=== PATIENT | female | born 1990 | race Caucasian/White ===

== ENCOUNTER 2022-02-04 11:35 | Emergency (ER) | payer SELFPAY ==
--- OUTSIDE RECORDS SUMMARY | 2022-02-04 11:38 | XMS REPORT | Continuity of Care Document ---
:1990 Author Organization [facility] t Address [address] [place] [address] Care Team Providers Name Role Phone TIFFANIE ALMAZAN Attending Clinician Unavailable Problems This patient has no known problems. Allergies, Adverse Reactions, Alerts This patient has no known allergies or adverse reactions. Medications This patient has no known medications. Procedures This patient has no known procedures. Encounters Start End Encounter Admission Attending Care Care Encounter Source Date/Time Date/Time Type Type Clinicians Facility Department ID 2020-02-02 2020-02-02 Emergency E MIKO ALMAZAN [id number] 08:34:00 11:30:00 TIFFANIE Results This patient has no known results.
--- NOTE | 2022-02-04 14:07 | ER ---
Nurse's Notes [facility] Name: Yulissa Moran Age: 31 yrs Sex: Female : 1990 Arrival Date: 02/04/2022 Time: 11:37 Bed 28 Private MD: Diagnosis: Dysuria Presentation: 02/04 12:27 Chief complaint: Patient states: " a week ago I had intercourse with my partner and I em6 noticed I got a blister and its really painful". Coronavirus screen: Client denies travel out of the [place] in the last 14 days. Ebola Screen: Patient negative for fever greater than or equal to 101.5 degrees Fahrenheit, and additional compatible Ebola Virus Disease symptoms. Initial Sepsis Screen: Does the patient meet any 2 criteria? No. Patient's initial sepsis screen is negative. Does the patient have a suspected source of infection? No. Patient's initial sepsis screen is negative. Risk Assessment: Do you want to hurt yourself or someone else? Patient reports no desire to harm self or others. Onset of symptoms was January 28, 2022. 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 - Social history:: Smoking status: unknown. Screenin:27 Abuse screen: Denies threats or abuse. Nutritional screening: No deficits noted. em6 Tuberculosis screening: No symptoms or risk factors identified. Fall Risk. Assessment: 12:24 General: Appears uncomfortable, Behavior is cooperative, anxious. Pain: Denies pain. em6 Neuro: Level of Consciousness is awake, alert, obeys commands. Neuro: Oriented to person, place, time, situation. Cardiovascular: Patient's skin is warm and dry. Respiratory: Airway is patent Respiratory effort is even, unlabored, Respiratory pattern is regular, symmetrical. GI: No signs and/or symptoms were reported involving the gastrointestinal system. : Reports burning with urination, discharge, white, pain in the blister. EENT: No deficits noted. Derm: No deficits noted. Musculoskeletal: Circulation, motion, and sensation intact. Range of motion: intact in all extremities. 13:30 Reassessment: No changes from previously documented assessment. Patient and/or family em6 updated on plan of care and expected duration. Pain level reassessed. Patient is alert, oriented x 3, equal unlabored respirations, skin warm/dry/pink. Vital Signs: 12:27 BP 135 / 97; Pulse 77; Resp 18; Temp 98; Pulse Ox 100% ; Weight 69.4 kg; Height 5 ft. 3 em6 in. (160.02 cm); 13:15 BP 130 / 78; Pulse 72; Resp 18; Pulse Ox 100% on R/A; em6 14:00 BP 140 / 86; Pulse 80; Resp 18; Pulse Ox 100% on R/A; em6 12:27 Body Mass Index 27.10 (69.40 kg, 160.02 cm) em6 ED Course: 11:37 Patient arrived in ED. rg4 11:38 Christopher Ulrich PA is PHCP. [facility] 11:38 Joey Polo MD is Attending Physician. [facility] 12:12 Radha Levine, RN is Primary Nurse. em6 12:29 Triage completed. em6 12:29 Arm band placed on. em6 12:30 Patient has correct armband on for positive identification. Placed in gown. Bed in low em6 position. Side rails up X2. Pulse ox on. NIBP on. Warm blanket given. 12:44 RPR Sent. em6 12:44 HIV AG/AB, 4th Gen W/ Reflex Sent. em6 12:44 Inserted saline lock: 20 gauge in left antecubital area, using aseptic technique. Blood em6 collected. 13:36 Herpes Simplex Virus Culture Sent. em6 13:36 RPR Sent. em6 13:36 HIV AG/AB, 4th Gen W/ Reflex Sent. em6 13:36 Wet Prep Sent. em6 13:36 GC (GONORR/CHLAMYDIA) Probe Sent. em6 13:36 Assist provider with pelvic exam: Set up pelvic tray. Performed by Christopher LUJAN em6 Specimens sent to lab. Patient tolerated well. 14:06 Michelle Anne MD is Referral Physician. [facility] 14:16 IV discontinued, intact, bleeding controlled, No redness/swelling at site. Pressure em6 dressing applied. Administered Medications: No medications were administered Medication: 14:16 VIS not applicable for this client. em6 Outcome: 14:06 Discharge ordered by . [facility] 14:16 Discharged to home ambulatory. em6 14:16 Condition: stable 14:16 Discharge instructions given to patient, Instructed on discharge instructions, follow up and referral plans. medication usage, Demonstrated understanding of instructions, follow-up care, medications, Prescriptions given X 3. 14:16 Patient left the ED. em6 Signatures: Christopher Ulrich PA PA jmm Garcia, Rubi rg4 Radha Levine, RN RN em6
--- NOTE | 2022-02-04 14:07 | EDPHYS ---
Physician Documentation [facility] Name: Yulissa Moran Age: 31 yrs Sex: Female : 1990 Arrival Date: 02/04/2022 Time: 11:37 Bed 28 Private MD: ED Physician Joey Polo HPI: 02/04 12:08 This 31 yrs old Female presents to ER via Ambulatory with complaints of STD Exposure. jmm 12:08 The patient presents with a possible exposure to a sexually transmitted disease, jmm herpes. Onset: The symptoms/episode began/occurred gradually. Modifying factors: The symptoms are alleviated by. This is a 31 year old female with no chronic medical conditions that presents to the ED with complaints of of a labial lesion which she attempted to express. Patient states now having painful urination. Patient is concerned she may have an STI. . 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 - Social history:: Smoking status: unknown. ROS: 12:08 Constitutional: Negative for fever, chills, and weight loss, Cardiovascular: Negative jmm for chest pain, palpitations, and edema, Respiratory: Negative for shortness of breath, cough, wheezing, and pleuritic chest pain. 12:08 : Positive for urinary symptoms. 12:08 All other systems are negative. Exam: 12:08 Constitutional: This is a well developed, well nourished patient who is awake, alert, jmm and in no acute distress. Head/Face: atraumatic. Eyes: EOMI, no conjunctival erythema appreciated ENT: Moist Mucus Membranes Neck: Trachea midline, Supple Chest/axilla: Normal chest wall appearance and motion. Cardiovascular: Regular rate and rhythm. No edema appreciated Respiratory: Normal respirations, no respiratory distress appreciated Abdomen/GI: Non distended Back: Normal ROM Skin: General appearance color normal 12:08 Chest/axilla: Normal chest wall appearance and motion. MS/ Extremity: Moves all extremities, no obvious deformities appreciated, no edema noted to the lower extremities Neuro: Awake and alert Psych: Behavior is normal, Mood is normal, Patient is cooperative and pleasant 12:08 : papular lesion noted to the right labia minora, cervix appears normal, slight bleeding, no abnormal discharge. Vital Signs: 12:27 BP 135 / 97; Pulse 77; Resp 18; Temp 98; Pulse Ox 100% ; Weight 69.4 kg; Height 5 ft. 3 em6 in. (160.02 cm); 13:15 BP 130 / 78; Pulse 72; Resp 18; Pulse Ox 100% on R/A; em6 14:00 BP 140 / 86; Pulse 80; Resp 18; Pulse Ox 100% on R/A; em6 12:27 Body Mass Index 27.10 (69.40 kg, 160.02 cm) em6 MDM: 12:08 Patient medically screened. [facility] 13:41 Data reviewed: vital signs, nurses notes. [facility] 14:06 Counseling: I had a detailed discussion with the patient and/or guardian regarding: the [facility] historical points, exam findings, and any diagnostic results supporting the discharge/admit diagnosis, the need for outpatient follow up, to return to the emergency department if symptoms worsen or persist or if there are any questions or concerns that arise at home. 02/04 12:09 Order name: GC (GONORR/CHLAMYDIA) Probe [facility] 02/04 12:10 Order name: Wet Prep; Complete Time: 14:[address] [facility] 02/04 12:14 Order name: HIV AG/AB, 4th Gen W/ Reflex [facility] 02/04 12:15 Order name: RPR [facility] 02/04 13:59 Order name: HSV Culture and Typing [facility] 02/04 12:09 Order name: Pelvic Exam Setup; Complete Time: 12:[address] [facility] Administered Medications: No medications were administered Disposition: 16:10 Co-signature as Attending Physician, Joey Polo MD. rn Disposition Summary: 02/04/22 14:06 Discharge Ordered Location: Home [facility] Condition: Stable [facility] Diagnosis - Dysuria [facility] Followup: [facility] - With: Michelle Anne MD - When: 2 - 3 days - Reason: Recheck today's complaints, Continuance of care, Re-evaluation by your physician Discharge Instructions: - Discharge Summary Sheet [facility] - Chlamydia, Female jm - Genital Herpes jmm - Gonorrhea [facility] Forms: - Medication Reconciliation Form [facility] - Thank You Letter jm - Antibiotic Education [facility] - Prescription Opioid Use [facility] Prescriptions: - Valtrex 1 gram Oral tablet - take 1 tablet by ORAL route 3 times per day for 7 days; 21 tablet; Refills: 0, [facility] Product Selection Permitted - cefdinir 300 mg Oral capsule - take 1 capsule by ORAL route every 12 hours; 20 capsule; Refills: 0, Product [facility] Selection Permitted - Zithromax Z-Aníbal 250 mg Oral Tablet - take 1 tablet by ORAL route as directed for 5 days Day 1 - take two (2) tablets [facility] one time. Day 2, 3, 4 , 5 take one (1) tablet once daily.; 6 tablet; Refills: 0, Product Selection Permitted Signatures: Dispatcher [employer] Christopher Kennedy PA PA m Joey Polo MD MD rn Radha Levine RN RN em6
[2022-02-04 14:21] VITALS: TEMP 98; O2SAT 100
[2022-02-04 14:23] VITALS: BP 140/86
[2022-02-05 02:27] LABS: RPR (Rapid Plasma Reagin) NON-REACT (NON-REACT)
[2022-02-06 14:27] LABS: HIV AG/AB 4TH GEN Non-reactive (Non-reactive)
[2022-02-06 15:02] LABS: C.trachomatis RNA,TMA Not Detected (Not Detected)
[2022-02-07 14:58] LABS: HSV Source Cervix
== END 2022-02-04 14:16 | disposition home or self-care (01) ==
LOC: ER 11:35
DX: R30.0 Dysuria (principal)
CPT/HCPCS: 36415; 86592; 87210; 87255; 87389; 87490; 87590; 99284

== ENCOUNTER 2023-07-03 15:11 | Emergency (ER) | payer SELFPAY ==
--- OUTSIDE RECORDS SUMMARY | 2023-07-03 15:16 | XMS REPORT | Continuity of Care Document ---
Author Name Unknown Address [address] [place] [address] [employer] Address [address] [place] [address] [address] [place] [address] Care Team Providers Care Space Scheduler Name Role Phone Unavailable Unavailable Unavailable
[2023-07-03 16:20] LABS: Absolute Basophils 0.1 K/uL (0-0.5); Absolute Eosinophils 0.1 K/uL (0-0.5); Absolute Lymphocytes (CBC) 2.1 K/uL (0.7-4.9); Absolute Monocytes 0.6 K/uL (0.1-1.3); Absolute Neutrophil 5.9 K/uL (1.8-8.0); Basophils % 1.2 % (0-1.3); Eosinophils % 0.8 % (0-4.4); Hematocrit 24.4 % (36.0-45.0); Hemoglobin 7.4 g/dL (12.0-15.0); Lymphocytes % 23.7 % (15.3-44.8); MCH 17.5 pg (27.0-35.0); MCHC 30.2 g/dL (32.0-36.0); MCV 57.8 fL (80-100); MPV 7.2 fL (7.6-11.3); Monocytes % 7.1 % (3.3-12.3); Neutrophils % 67.2 % (41.7-73.7); Platelets 462 thou/uL (152-406); RBC Red Blood Cell Count 4.22 M/uL (3.86-4.86); Red Cell Distribution Width 18.1 % (12.1-15.2)
[2023-07-03 16:43] LABS: Anion Gap 6.4 mEq/L (5.0-15.0); BUN Blood Urea Nitrogen 9 mg/dL (7-18); Bicarbonate 29 mEq/L (21-32); Glomerular Filtration Rate 114 ml/min (=/>90); Glucose Level 126 mg/dL (74-106); Potassium 3.4 mEq/L (3.5-5.1); Sodium Level 138 mEq/L (136-145); Thyroid Stimulating Hormone 0.719 uIU/mL (0.358-3.740)
[2023-07-03 16:48] LABS: Troponin High Sensitivity < 3.0 pg/mL (<58.9)
[2023-07-03 17:09] LABS: Anisocytosis 2+; Blood Morphology Comment NOTED (NOT SEEN); Hypochromasia 2+; Microcytosis 1+; Ovalocytes 1+; Platelet Estimate INCR; White Blood Cell Scan OK (OK)
--- NOTE | 2023-07-03 17:27 | ER ---
Nurse's Notes [facility] Name: Yulissa Moran Age: 33 yrs Sex: Female : 1990 Arrival Date: 07/03/2023 Time: 15:11 Bed 15 Private MD: Diagnosis: Iron deficiency anemia, unspecified Presentation: 07/02 15:27 Chief complaint: Palpitations and chest tightness x 3 days. Coronavirus screen: At this hb time, the client does not indicate any symptoms associated with coronavirus-19. Ebola Screen: No symptoms or risks identified at this time. Initial Sepsis Screen: Does the patient meet any 2 criteria? No. Patient's initial sepsis screen is negative. Does the patient have a suspected source of infection? No. Patient's initial sepsis screen is negative. Risk Assessment: Do you want to hurt yourself or someone else? Patient reports no desire to harm self or others. Onset of symptoms was July 01, 2023. 15:27 Method Of Arrival: Ambulatory hb 15:27 Acuity: CARMEN 3 hb Triage Assessment: 15:28 General: Appears in no apparent distress. Behavior is calm, cooperative. Pain: Denies hb pain. Neuro: Level of Consciousness is awake, alert, obeys commands, Oriented to person, place, time, situation. Cardiovascular: Reports palpitations, chest tightness Rhythm is regular. Respiratory: Respiratory effort is even, unlabored, Respiratory pattern is regular, symmetrical. 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 - Infectious Disease History:: Denies. - Social history:: Smoking status: Patient denies any tobacco usage or history of. - Family history:: not pertinent. - Hospitalizations: : No recent hospitalization is reported. Screenin:30 [facility] ED Fall Risk Assessment (Adult) History of falling in the last 3 months, bp including since admission No falls in past 3 months (0 pts). Abuse screen: Denies threats or abuse. Denies injuries from another. Nutritional screening: No deficits noted. Tuberculosis screening: No symptoms or risk factors identified. Assessment: 15:30 General: SEE TRIAGE NOTE. bp Vital Signs: 15:27 BP 138 / 85; Pulse 88; Resp 16; Temp 98.3; Pulse Ox 100% on R/A; Weight 69.85 kg; hb Height 5 ft. 3 in. ; Pain 1/10; 17:59 BP 129 / 75; Pulse 83; Resp 16; Pulse Ox 100% ; bp 15:27 Body Mass Index 27.28 (69.85 kg, 160.02 cm) hb 15:27 Pain Scale: Adult hb ED Course: 15:15 Patient arrived in ED. mg5 15:16 Joey Polo MD is Attending Physician. rn 15:23 EKG done, by ED staff, reviewed by Joey Polo MD. hb 15:28 Triage completed. hb 15:28 Arm band placed on. hb 15:30 Patient has correct armband on for positive identification. Provided Education on: N/A. bp Client placed on continuous cardiac and pulse oximetry monitoring. NIBP monitoring applied. cardiac monitor on. 15:30 Response to oxygen therapy: symptoms remain unchanged. bp 15:57 Laron Preciado, RN is Primary Nurse. bp 16:06 CBC with Diff Sent. bp 16:06 Troponin High Sensitivity Sent. bp 16:06 Basic Metabolic Panel Sent. bp 16:06 TSH Sent. bp 16:06 T4 Free Sent. bp 16:06 Magnesium Sent. bp 16:06 Inserted saline lock: 22 gauge in right antecubital area, using aseptic technique. bp Blood collected. 17:59 No provider procedures requiring assistance completed. IV discontinued, intact, bp bleeding controlled, No redness/swelling at site. Pressure dressing applied. Administered Medications: No medications were administered Medication: 15:30 VIS not applicable for this client. bp Outcome: 17:26 Discharge ordered by . rn 17:59 Discharged to home ambulatory, bp 17:59 Condition: stable 17:59 Discharge instructions given to patient, Instructed on discharge instructions, follow up and referral plans. Demonstrated understanding of instructions, follow-up care, 17:59 Patient left the ED. bp Signatures: Joey Polo MD MD rn Baxter, Heather RN RN Laron Grubbs RN RN Vera Abrams mg5
--- NOTE | 2023-07-03 17:27 | EDPHYS ---
Physician Documentation [facility] Name: Yulissa Moran Age: 33 yrs Sex: Female : 1990 Arrival Date: 07/03/2023 Time: 15:11 Bed 15 Private MD: ED Physician Joey Polo HPI: 07/02 15:46 This 33 yrs old Female presents to ER via Ambulatory with complaints of Palpitations. rn 15:49 The patient presents with a history of heart skipping beats. Context: The symptoms rn occur at rest. Onset: The symptoms/episode began/occurred 3 day(s) ago. Duration: The patient or guardian reports multiple episodes, that are intermittent. Modifying factors: The symptoms are aggravated by nothing. The symptoms are alleviated by nothing. Severity of symptoms: At their worst the symptoms were mild in the emergency department the symptoms have improved. The patient has experienced similar episodes in the past. Patient reports intermittent episodes of palpitations and feeling like heart is skipping. Patient has family history of atrial fibrillation and not sure if early cardiac disease. No new medications. No drugs. Does not drink. Not . Patient reports brief episodes where her heart will pause and skip a beat. Denies tachycardia. No shortness of breath. No syncope.. 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 - Infectious Disease History:: Denies. - Social history:: Smoking status: Patient denies any tobacco usage or history of. - Family history:: not pertinent. - Hospitalizations: : No recent hospitalization is reported. ROS: 15:49 Constitutional: Negative for fever, chills, and weight loss, Eyes: Negative for injury, rn pain, redness, and discharge, Cardiovascular: Positive for palpitations, negative for chest pain Respiratory: Negative for shortness of breath, cough, wheezing, and pleuritic chest pain, Abdomen/GI: Negative for abdominal pain, nausea, vomiting, diarrhea, and constipation, Back: Negative for injury and pain, MS/Extremity: Negative for injury and deformity, Skin: Negative for injury, rash, and discoloration, Neuro: Negative for headache, weakness, numbness, tingling, and seizure, Exam: 15:49 Constitutional: This is a well developed, well nourished patient who is awake, alert, rn and in no acute distress. Cardiovascular: Regular rate and rhythm. No pulse deficits. Respiratory: No increased work of breathing, no retractions or nasal flaring. Skin: Warm, dry Vital Signs: 15:27 BP 138 / 85; Pulse 88; Resp 16; Temp 98.3; Pulse Ox 100% on R/A; Weight 69.85 kg; hb Height 5 ft. 3 in. ; Pain 1/10; 17:59 BP 129 / 75; Pulse 83; Resp 16; Pulse Ox 100% ; bp 15:27 Body Mass Index 27.28 (69.85 kg, 160.02 cm) hb 15:27 Pain Scale: Adult hb MDM: 15:16 Patient medically screened. rn 17:25 Differential diagnosis: arrythmia, dehydration, stress disorder, Anemia, electrolyte rn problem, anxiety. Data reviewed: vital signs, nurses notes, lab test result(s), EKG, and as a result, I will discharge patient. Counseling: I had a detailed discussion with the patient and/or guardian regarding the historical points, exam findings, and any diagnostic results supporting the discharge/admit diagnosis, lab results, radiology results, the need for outpatient follow up, to return to the emergency department if symptoms worsen or persist or if there are any questions or concerns that arise at home. Special discussion: I discussed with the patient/guardian in detail that at this point there is no indication for admission to the hospital. It is understood, however, that if the symptoms persist or worsen the patient needs to return immediately for re-evaluation. Based on the history and exam findings, there is no indication for further emergent testing or inpatient evaluation. I discussed with the patient/guardian the need to see the OB Gyne specialist for further evaluation of the symptoms. I discussed with the patient/guardian the need to see the primary care provider for further evaluation of the symptoms. ED course: Patient with microcytic anemia. Likely iron deficiency. Patient reports heavy periods and has history of fibroids. Has a history of anemia. No longer takes her iron. Recommend iron supplementation and daily multivitamin with gynecology follow-up. No evidence of arrhythmia here or on ECG. Will discharge with return precautions. I have personally reviewed all of the results, including but not limited to blood tests and imaging deemed necessary to safely discharge this patient at this time. All results given to and printed out for patient. I personally went over all the results with the patient and answered all questions. Patient will follow-up with PCP and or specialist as discussed. Return precautions given and understood.. 07/02 15:22 Order name: CBC with Diff; Complete Time: 17:15 hb 07/02 15:22 Order name: Basic Metabolic Panel; Complete Time: 17:15 hb 07/02 15:22 Order name: Troponin High Sensitivity; Complete Time: 17:15 hb 07/02 15:23 Order name: TSH; Complete Time: 17:15 hb 07/02 15:23 Order name: T4 Free; Complete Time: 17:15 hb 07/02 15:24 Order name: Magnesium; Complete Time: 17:15 hb 07/02 16:27 Order name: CBC Smear Scan; Complete Time: 17:15 EDMS 07/02 15:21 Order name: EKG - Nurse/Tech; Complete Time: 15:47 hb 07/02 15:22 Order name: IV Start; Complete Time: 16:06 hb Administered Medications: No medications were administered Disposition Summary: 07/03/23 17:26 Discharge Ordered Notes: Location: Home rn Problem: new rn Symptoms: have improved rn Condition: Stable rn Diagnosis - Iron deficiency anemia, unspecified rn Followup: rn - With: Private Physician - When: As needed - Reason: Recheck today's complaints, Re-evaluation by your physician Discharge Instructions: - Discharge Summary Sheet rn - Iron Deficiency Anemia, Adult rn - Anemia rn Forms: - Medication Reconciliation Form rn - Thank You Letter rn - Antibiotic rn immunology - Prescription Opioid Use rn - Patient Portal Instructions rn - Leadership Thank You Letter rn Signatures: Dispatcher [employer] EDJoey Duncan MD MD rn Baxter, Heather, RN RN hb Corrections: (The following items were deleted from the chart) 15:23 15:23 CBC+H.LAB.BRZ ordered. EDMS EDMS 15:23 15:23 BASIC METABOLIC PANEL+C.LAB.BRZ ordered. EDMS EDMS 15:23 15:23 Troponin High Sensitivity+C.LAB.BRZ ordered. EDMS EDMS 15:23 15:23 THYROID STIMULAT HORMONE+C.LAB.BRZ ordered. EDMS EDMS 15: T4 FREE+C.LAB.BRZ ordered. EDMS EDMS : 15:24 MAGNESIUM+C.LAB.BRZ ordered. EDMS EDMS
[2023-07-03 21:00] VITALS: BP 129/75; TEMP 98.3; O2SAT 100
== END 2023-07-03 17:59 | disposition home or self-care (01) ==
LOC: ER 15:11
DX: D50.9 Iron deficiency anemia, unspecified (principal)
CPT/HCPCS: 36415; 80048; 83735; 84439; 84443; 84484; 85025; 93005; 99285